=== PATIENT | male | born 1955 | race American Indian/Alaskan Native ===

== ENCOUNTER 2018-01-24 12:47 | Outpatient (CLI) | payer OTHER ==
--- NOTE | 2018-01-24 13:28 | XRay Report ---
RIGHT KNEE: Knee pain. The bony architecture is intact without evidence of fracture or dislocation. No significant soft tissue abnormality is seen. IMPRESSION: Normal right knee.
--- NOTE | 2018-01-24 13:32 | XRay Report ---
Lumbar spine: Low back pain. There is a mild scoliotic curve to the left in the mid and lower lumbar spine and what appears to be the lower margin of a rightward curvature in the lower thoracic spine. The L1 and L2 bodies are rotated and there is mild compression of the right side of it least L1 and probably L2. Severe proliferative bony changes are identified involving the apophyseal joints between L4-5 and L5-S1. Large traction spurs are present from T12-L4 with anterior bridging between T12 and L1. The intervertebral discs are narrowed from T12-L4. There is mild diffuse loss of bone height at L2. There is no obvious subluxation identified nor is there any evidence of an acute fracture. The bones appear generally well mineralized. 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
== END 2018-01-24 12:48 | disposition home or self-care (01) ==
LOC: XRAY 12:47
PROVIDERS: ATTEND Internal Medicine
DX: Z02.71 Encounter for disability determination (principal); M51.36 Other intervertebral disc degeneration, lumbar region; M25.561 Pain in right knee
CPT/HCPCS: 72100